=== PATIENT | female | born 1990 | race Caucasian/White ===

== ENCOUNTER → 2018-03-28 13:18 | Outpatient (CLI) | payer OTHER, SELFPAY ==
[2018-03-28 15:27] LABS: Chlamydia Trachomatis by PCR Negative (Negative); Neisserai gonorrhoeae by PCR Negative (Negative); Probe Check PASS; Sample Adequacy Control PASS; Specimen Processing Control PASS
== END ==
PROVIDERS: Referring Provider Obstetrics & Gynecology; Visit Provider Obstetrics & Gynecology
DX: Z12.4 Encounter for screening for malignant neoplasm of cervix (principal); Z11.3 Encounter for screening for infections with a predominantly sexual mode of transmission
CPT/HCPCS: 87491; 87591; 88175; G0145

== ENCOUNTER → 2018-08-07 09:30 | Outpatient (CLI) | payer OTHER, SELFPAY | PROVIDERS: Visit Provider Obstetrics & Gynecology | DX: Z36.85 Encounter for antenatal screening for Streptococcus B (principal) | CPT/HCPCS: 87081 ==

== ENCOUNTER 2018-08-28 18:25 | Inpatient (IN) | payer SELFPAY ==
[2018-08-28] VITALS (11 sets, daily range): BP systolic 106–128; BP diastolic 57–80; PULSE 83–133; RESP 16–18; TEMP 36.6–36.8; O2SAT 95–100; BMI 29.9
[2018-08-28] MEDS: Lactated Ringers 1,000 ML 999 ML IV (18:45)
[2018-08-28 19:00] LABS: Absolute Lymphocyte Count 2.54 X10^3/ul (0.83-4.51); Absolute Neutrophil Count 9.2 X10^3/uL (2.0-7.7); Basophil# 0.04 X10^3/uL; Basophil% 0.3 % (0-1); Eosinophil# 0.25 X10^3/uL; Eosinophils% 1.9 % (0-5); Hematocrit 37.9 % (37-47); Hemoglobin 12.8 g/dl (12.0-15.0); Lymphocyte # 2.54 X10^3/ul (4.0); Lymphocyte % 19.4 % (19-41); Mean Corp Hgb Conc 33.8 g/gl (32-36); Mean Corpuscular Hgb 27.1 pg (27.0-32.0); Mean Corpuscular Volume 80.1 fL (81-99); Mean Platelet Vol. 9.6 fl (6.2-12.0); Monocyte# 1.04 X10^3/uL; Monocyte% 7.9 % (0-10); Neutrophil # 9.22 X10^3/uL (2.7-7.7); Neutrophil % 70.3 % (47-70); Platelet Count 279 K/mm3 (150-450); RBC Distribution Width CV 14.2 % (11.6-14.6); RBC Distribution Width SD 41.3 fl (35.1-43.9); Red Blood Count 4.73 M/mm3 (4.2-5.4); White Blood Count 13.1 K/mm3 (4.4-11.0)
[2018-08-28 19:01] LABS: POSITIVE COUNT NO; POSITIVE DIFFERENTIAL NO; POSITIVE MORPHOLOGY NO
[2018-08-28] MEDS: Sodium Citrate/Citric Acid 30 ML UDC PO (19:18)
--- NOTE | 2018-08-28 19:34 | PCM.OPRPT ---
Delivery Classification: Scheduled Final MELISSA: 08/31/18 Gestational age: 39 Weeks and 4 Days Indications: Uterine Window; Prior Low Transverse Description of Procedure: Surgeon: Ej Godoy MD, FACOG [employer] Leadership: DAVID Klein Anesthesia: Stanley Mckinney MD Anesthesia: Spinal with Duramorph Pre-op Diagnosis: Prior Section; Uterine Window Post-Op Diagnosis: Prior Section; Uterine Window Procedure: Repeat Low Transverse Cervical Caesarean Section Findings: Viable female with Apgars of 8/9 in caput anterior presentation with clear amniotic fluid and normal three-vessel placenta. There was an approximate 8 x 12 cm uterine window present. Multiple adhesions of the omentum to the anterior abdominal wall and adhesions of the uterus to the pelvic sidewalls were present and taken down with suture ligation and cautery dissection. Indication: This is a 27-year-old who presents for her second at 39+ weeks gestation. She planned on having a vaginal after but on ultrasound today in the office there was noted be a large uterine window present. Given this she desired we immediately proceed with the above surgery. care has otherwise been uneventful. The patient has been counseled regarding the risk and indications of this procedure including the possibility of bleeding infection and injury to surrounding structures such as bowel bladder. All questions were answered. Procedure: Patient was taken to the operating room where after spinal anesthesia was placed, the patient was prepped and draped in usual sterile fashion and a Arthur catheter was placed. The abdomen was entered through the patient's prior Pfannenstiel incision, old skin scar was removed, and peritoneum was entered bluntly. After taking down some filmy omental adhesions with cautery and developing a bladder flap on the lower uterine segment a low transverse incision was made on the uterus at the superior edge of the window and head was easily delivered onto the operative field the nose mouth and oropharynx were bulb suctioned. Subsequently a viable female infant was born with Apgars of 8/9. The infant was noted to cry move all extremities vigorously on the operative field. The umbilical cord was doubly clamped and ligated and infant handed to the nursery personnel who were present for the delivery. Placenta was delivered and noted to be 3 vessels and normal. Uterus was exteriorized and remaining placental tissue was removed. The uterus was then closed in 2 layers first with running locked 0 Vicryl suture followed by a second imbricating layer with 0 Vicryl suture. 0 Vicryl suture was then used in a horizontal mattress interrupted fashion to affect final hemostasis of the uterine incision line taking care to avoid the bladder. At the end of this portion of the procedure the urine was clear. Omental adhesions were divided with 0 Vicryl suture and normal fallopian tubes and ovaries were visualized and the uterus was returned to the pelvis. Hemostasis was noted and rectus abdominis muscles were reapproximated in the midline with interrupted Number 0 Vicryl suture in a horizontal mattress fashion. Fascia was closed with running Number 1 PDS Strata fix suture. Subcutaneous tissue was irrigated with copious amounts of saline solution and then closed with running 3-0 Vicryl suture in 2 layers. Skin was closed with 4-0 monocryl suture in a running subcuticular fashion. Steri strips, telfa, tape, and a pressure dressing were placed across the incision. The patient tolerated the procedure well and was taken to the recovery room in satisfactory condition. Sponge, needle, and instrument counts were all reportedly correct. EBL was 500 cc cc. Ancef 2 gms IV was given prior to the procedure. Spicemen to Pathology: None Complications: None Amniotic Membrane Rupture Type: Artificial Amniotic Fluid Description: Clear Placenta Disposition: [facility] Cord Entanglement: None Cord Vessel Description: 3 Vessels Esitmated Blood Loss (ml): 500 cc Gender: Female (1 minute): 8 (5 minute): 9 Pre-op Antibiotic Given: Ancef 2 grams IV x1 Pt instructed on risks of surgery: Bleeding, Infection, Injury to surrounding structure(s) including bowel and bladder Complications: None - Admit VTE Documentation VTE Present on Admission: Yes VTE Mechan Device Prophylaxis: SCD's
--- NOTE | 2018-08-28 19:38 | DCINST_ITS ---
Discharge Diet: No Restrictions Discharge Activity: May not drive while taking narcotic pain medications., May Shower, May Take a Tub Bath May resume sexual activity in: 4-6 weeks Lifting Restrictions: 20 pounds Additional Activity Instructions:: Nothing in the vagina for 4-6 weeks. You may return to work/school in 6 weeks. Call your doctor if your incision/area has: Continuous Slow Oozing, Sudden Increased Bleeding, Increased Pain/ Swelling, Increased Redness, Foul Smelling Discharge Call your doctor if you observe: Fever of 101 or Higher, Inability to urinate, Inability to have a bowel movement, Using more than one pad per hour Additional Instructions: If you experience any of the following, contact your healthcare provider. * Bleeding that soaks a pad every hour for 2 hours * Unrelieved incision or abdominal pain * Swelling, redness, discharge or bleeding from your incision or episiotomy site * Your incision begins to separate * Problems urinating (including inability to urinate or burning while urinating). * Visual changes * Severe headache * Flu-like symptoms * Pain or redness in one of both of your breasts * Pain, warmth, tenderness or swelling in your legs, especially the calf area * Frequent nausea and vomiting * Symptoms of depression or anxiety If you experience any of the following, call 911 or go to the nearest Emergency Room. * Chest pain * Problems breathing * Seizure activity * Partial or complete paralysis of a body part, slurred speech, weakness or drooping of the face, or a sudden inability to walk or hold your balance Allergies/Adverse Reactions: Allergies No Known Allergies Allergy (Verified 08/28/18 18:36) Medications to take at Discharge Docusate Sodium [Colace] 100 mg PO BID PRN PRN #60 cap 08/28/18 Oxycodone [Oxyir] 5 mg PO Q6H PRN PRN 7 Days #20 tab 08/28/18 Vits [Prenatabs FA] 1 tab PO DAILY 08/28/18 The following prescriptions were given: Docusate Sodium [Colace] 100 mg PO BID PRN PRN #60 cap PRN Reason: Constipation Prescription Printed Oxycodone [Oxyir] 5 mg PO Q6H PRN PRN 7 Days #20 tab PRN Reason: Severe Pain () Prescription Printed Follow-Up: Call to make an appointment with your doctor for an incision check in 1-2 weeks. You will also need a 6 week post- follow up appointment. Test results from this visit will be discussed in further detail at your follow- up appointment, if applicable. Please Follow Up With: Ej Godoy MD - [phone] When: Call to make an appointment for an incision check in 2 weeks.
[2018-08-28] MEDS: Cefazolin 2 GM in 0.9% Normal Saline 100 ML IV (19:45)
[2018-08-28] MEDS: Oxytocin 30 units/NS 500 ml 30 UNITS/500 ML IV.SOLN 167 UNITS IV (20:00)
--- NOTE | 2018-08-28 21:21 | EKG12_ITS ---
Test Reason : HEART MURMOR Blood Pressure : / mmHG Vent. Rate : 096 BPM Atrial Rate : 096 BPM P-R Int : 162 ms QRS Dur : 094 ms QT Int : 348 ms P-R-T Axes : 118 086 139 degrees QTc Int : 439 ms Normal sinus rhythm with sinus arrhythmia Incomplete right bundle branch block Nonspecific ST and T wave abnormality Abnormal ECG No previous ECGs available Confirmed by NEMESIO DELVALLE ([id number]), subeditor ERNIE MYERS ([id number]) on 08/30/2018 2:05:42 PM Referred By: Ej Godoy Confirmed By:NEMESIO DELVALLE
--- NOTE | 2018-08-28 21:47 | PCM.PROGNOTE ---
Subjective: Day of Delivery Called to see patient due to significant murmur on exam by RNMaris Waters with known family history of Hypertrophic Cardiomyopathy. She is a carrier, but unaffected as of last evaluation . She states had cardiac ECHO by a now defunct [facility] medical organization at 20 yrs of age. She denies any functional limitations. She was delivered tonight by repeat C/S rather than ... due to a large uterine defect noted on ultrasound today. She is nursing the baby, in NAD Her prior C/S was for distress -- and she had no complications with that surgery. Objective: Sitting up in bed, holding baby, conversant - Physical Exam General: Alert, Oriented x3, Cooperative, No apparent distress HEENT: Atraumatic, EOMI, Normocephalic Oral: Moist Mucosa Neck: Supple, - - no bruits noted no referred murmur Lungs: Clear to auscultation, Normal air movement Cardiovascular: Regular rate, Regular Rhythm, No murmurs Abdomen: Soft Skin: Incision Neurological: Cranial nerves II-XII grossly intact Psych/Mental Status: Normal Affect, Appropriate Vital Signs Temp Pulse Resp BP Pulse Ox 97.9 F 85 16 121/72 H 95 08/28/18 21:25 08/28/18 21:25 08/28/18 21:25 08/28/18 21:25 08/28/18 21:25 Oxygen Delivery Method Room Air Weight: 81.8 kg Body Mass Index (BMI) 29.9 Intake and Output for Last 24 Hours 08/26/18 08/27/18 08/28/18 23:59 23:59 23:59 Intake Total 1500 / 1500 Output Total 700 / 700 Balance 800 / 800 Laboratory Tests Past 24 Hrs 08/28/18 08/28/18 18:45 18:45 WBC 13.1 H RBC 4.73 Hgb 12.8 Hct 37.9 MCV 80.1 L MCH 27.1 MCHC 33.8 RDW 14.2 RDW Differential 41.3 Plt Count 279 MPV 9.6 Immature Gran % (Auto) 0.200 Neut % (Auto) 70.3 H Lymph % (Auto) 19.4 [place] % (Auto) 7.9 Eos % (Auto) 1.9 Baso % (Auto) 0.3 Absolute Neuts (auto) 9.2 H Absolute Lymphs (auto) 2.54 Total Counted Not Reportable Blood Type O POSITIVE Antibody Screen NEGATIVE Medical Necessity - Tobacco Use Smoking Status: Never smoker Assessment/Plan EKG: NSR with sinus arrhythmia. Nonspecific ST, T changes. Partial R BBB (unconfirmed) A/P: S/P repeat C Section . Normal cardiac exam at present . 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 Suspect prior RN exam with heart sounds due to accommodation, and hemodynamic fluid shifts with delivery. Nothing currently clinically concerning. Will arrange for cardiology consult and possible ECHO during this hospital stay, given pt's hx and no recent workup.
--- NOTE | 2018-08-28 21:47 | NURSING ---
2134 Resp therapy into room for EKG 2139 at bedside, assessing pt, and reviewed EKG. plan at this time is to have a cardiac echo tomorrow
[2018-08-28] MEDS: Lactated Ringers 1,000 ML 100 ML IV (22:00)
[2018-08-29] VITALS (19 sets, daily range): BP systolic 94–110; BP diastolic 52–64; PULSE 87–119; RESP 14–20; TEMP 36.2–37.4; O2SAT 98–100
[2018-08-29] MEDS: 0.9% Saline Lock 10 ML Syringe IV ×3 (01:39→20:30)
[2018-08-29] MEDS: Ketorolac 30 MG/ML Syringe IV (01:39)
[2018-08-29] MEDS: Cefazolin 1 GM/50 ML BAG IV ×2 (03:27→12:18)
[2018-08-29 06:01] LABS: Hematocrit 30.8 % (37-47); Hemoglobin 10.2 g/dl (12.0-15.0); Mean Corp Hgb Conc 33.1 g/gl (32-36); Mean Corpuscular Hgb 26.6 pg (27.0-32.0); Mean Corpuscular Volume 80.4 fL (81-99); Mean Platelet Vol. 9.4 fl (6.2-12.0); Platelet Count 245 K/mm3 (150-450); RBC Distribution Width CV 14.4 % (11.6-14.6); RBC Distribution Width SD 41.2 fl (35.1-43.9); Red Blood Count 3.83 M/mm3 (4.2-5.4); White Blood Count 13.2 K/mm3 (4.4-11.0)
[2018-08-29 06:08] LABS: Scan Indicated on CBC? Y/N NO
[2018-08-29] MEDS: Lactated Ringers 1,000 ML 100 ML IV (06:32)
--- NOTE | 2018-08-29 07:36 | PCM.PN.BLA ---
Progress Note ADDENDUM: Discussed pt with Dr Bell. He will order ECHO, and will consult prn depending on ECHO result.
[2018-08-29] MEDS: Ketorolac 15 MG/ML Vial 30 MG IV ×3 (07:51→20:30)
--- NOTE | 2018-08-29 08:23 | PCM.PN.OB ---
Subjective: Patient without complaints. Tolerating diet well. Minimal vaginal bleeding. Pain well controlled. Cardiac echo plan per Dr. Bell recommendation due to family history of hypertrophic cardiomyopathy and significant murmur noted by nursing. - Physical Exam Vital Signs Temp Pulse Resp BP Pulse Ox 99.4 F H 103 H 16 103/54 L 100 08/29/18 05:34 08/29/18 07:00 08/29/18 07:00 08/29/18 05:34 08/29/18 07:00 Oxygen Delivery Method Room Air Weight: 180 lb 5.41 oz Body Mass Index (BMI) 29.9 Intake and Output for Last 24 Hours 08/27/18 08/28/18 08/29/18 23:59 23:59 23:59 Intake Total 2225 / 2225 Output Total 800 / 800 800 / 800 Balance 1425 / 1425 -800 / -800 Laboratory Tests Past 24 Hrs 08/28/18 08/28/18 08/29/18 18:45 18:45 05:35 WBC 13.1 H 13.2 H RBC 4.73 3.83 L Hgb 12.8 10.2 L Hct 37.9 30.8 L MCV 80.1 L 80.4 L MCH 27.1 26.6 L MCHC 33.8 33.1 RDW 14.2 14.4 RDW Differential 41.3 41.2 Plt Count 279 245 MPV 9.6 9.4 Immature Gran % (Auto) 0.200 Neut % (Auto) 70.3 H Lymph % (Auto) 19.4 [place] % (Auto) 7.9 Eos % (Auto) 1.9 Baso % (Auto) 0.3 Absolute Neuts (auto) 9.2 H Absolute Lymphs (auto) 2.54 Total Counted Not Reportable Blood Type O POSITIVE Antibody Screen NEGATIVE Wound is clean, dry, intact. Good urine output. Hemoglobin okay. Medical Necessity - Tobacco Use Smoking Status: Never smoker Assessment/Plan Doing well postoperative day #1 status post repeat low transverse cervical section. Continuing present care.
--- NOTE | 2018-08-29 08:51 | ECHOD_ITS ---
Reason For Study: MURMUR Procedure This was a 2D Doppler, Color Flow transthoracic echocardiogram. The study was technically difficult. Exam performed portable in patient room. Left Ventricle Normal LV size. Left ventricular systolic function is normal. Normal diastology for age. The estimated ejection fraction is 60 %. No regional wall motion abnormalities noted. Right Ventricle Normal RV size. Normal systolic function. Atria Normal left atrium. Normal right atrium. Mitral Valve Normal mitral valve. Tricuspid Valve Normal tricuspid valve. Aortic Valve Normal aortic valve. Trisinus/trileaflet aortic valve. Pulmonic Valve Normal pulmonic valve. Great Vessels Normal aortic root. The pulmonary artery is normal size. Normal inferior vena cava. Pericardium/Pleural No pericardial effusion. MMode/2D Measurements & Calculations LVIDd: 4.0 cm IVSd: 0.89 cm Ao root diam: 2.7 cm LVIDs: 2.4 cm LVPWd: 0.97 cm RVDd: 2.9 cm FS: 38.7 % LAV(MOD-bp): 47.5 ml LVAd ap4: 28.1 cm2 SV(MOD-sp4): 54.7 ml LAV(MOD-bp) Indexed: 25.1 ml/m2 EDV(MOD-sp4): 83.1 ml LAV(MOD-sp2): 34.3 ml EDV(sp4-el): 86.6 ml LAV(MOD-sp4): 55.0 ml LVAs ap4: 14.1 cm2 ESV(MOD-sp4): 28.3 ml ESV(sp4-el): 28.7 ml EF(MOD-sp4): 65.9 % EF(sp4-el): 66.9 % SV(sp4-el): 57.9 ml LA A4 area: 18.8 cm2 LA dimension(2D): 2.6 cm RA A4 area: 11.5 cm2 Time Measurements MV dec time: 0.23 sec Doppler Measurements & Calculations MV E max mane: 109.5 cm/sec Lat Peak E' Mane: 17.8 cm/sec Med Peak E' Mane: 11.9 cm/sec MV A max mane: 81.2 cm/sec E/E' lat: 6.1 E/E' med: 9.2 MV E/A: 1.3 Ao V2 max: 158.7 cm/sec LV V1 max: 160.0 cm/sec Ao max P.1 mmHg LV V1 max P.2 mmHg Interpretation Summary Normal LV size. Left ventricular systolic function is normal. Normal diastology for age. No regional wall motion abnormalities noted. The estimated ejection fraction is 60 %. Structurally normal valves. Ordering Physician: Deepak Bell Referring Physician: Ej Godoy Performed By: Eryn Laboy RDCS, RVT
[2018-08-30 01:27] VITALS: BP 113/64; PULSE 79; RESP 18; TEMP 36.9; O2SAT 96
[2018-08-30] MEDS: Ketorolac 15 MG/ML Vial 30 MG IV ×2 (03:01→08:04)
[2018-08-30] MEDS: 0.9% Saline Lock 10 ML Syringe IV (03:02)
--- NOTE | 2018-08-30 06:02 | PCM.PN.OB ---
Subjective: Patient without complaints. Tolerating diet well. Breast-feeding going well. Positive flatus. Wants to go home later today if possible. - Physical Exam Vital Signs Temp Pulse Resp BP Pulse Ox 98.4 F 79 18 113/64 96 08/30/18 01:27 08/30/18 01:27 08/30/18 01:27 08/30/18 01:27 08/30/18 01:27 Oxygen Delivery Method Room Air Weight: 180 lb 5.41 oz Body Mass Index (BMI) 29.9 Intake and Output for Last 24 Hours 08/28/18 08/29/18 08/30/18 23:59 23:59 23:59 Intake Total 2225 / 2225 3347 / 3347 Output Total 800 / 800 5850 / 5850 650 / 650 Balance 1425 / 1425 -2503 / -2503 -650 / -650 Laboratory Tests Past 24 Hrs 08/29/18 05:35 WBC 13.2 H RBC 3.83 L Hgb 10.2 L Hct 30.8 L MCV 80.4 L MCH 26.6 L MCHC 33.1 RDW 14.4 RDW Differential 41.2 Plt Count 245 MPV 9.4 Wound is clean, dry, intact. Good urine output. Medical Necessity - Tobacco Use Smoking Status: Never smoker Assessment/Plan Doing well postoperative day #2 status post repeat section. Will discharge to home with routine instructions.
[2018-08-30 08:17] VITALS: BP 100/67; PULSE 90; RESP 16; TEMP 36.6; O2SAT 95
--- NOTE | 2018-09-03 18:56 | NURSING ---
No answer on follow up phone call, message left.
== END 2018-08-30 11:20 | disposition home or self-care (01) | DRG 788 ==
PROVIDERS: Admitting Provider Obstetrics & Gynecology; Referring Provider Obstetrics & Gynecology; Visit Provider Obstetrics & Gynecology
DX: O34.211 Maternal care for low transverse scar from previous cesarean delivery (principal); O34.593 Maternal care for other abnormalities of gravid uterus, third trimester; Q51.818 Other congenital malformations of uterus; R01.1 Cardiac murmur, unspecified; Z3A.39 39 weeks gestation of pregnancy; Z37.0 Single live birth
CPT/HCPCS: 59025; 85025; 85027; 86850; 86900; 93005; 93306; 99218; J7120; A4216; G0378; J2405

== ENCOUNTER 2021-05-26 13:11 | Outpatient (CLI) | payer OTHER, SELFPAY ==
[2021-06-01 12:00] LABS: Chlamydia By Nucleic Acid AMP Negative (Negative)
[2021-06-01 16:48] LABS: Gonococcus By Nucleic Acid AMP Negative (Negative)
[2021-06-03 20:07] LABS: HPV Reflexed? NOT INDICATED
== END 2021-05-26 23:59 | disposition home or self-care (01) ==
LOC: LABSPEC 13:12
PROVIDERS: Visit Provider Obstetrics & Gynecology
DX: Z34.81 Encounter for supervision of other normal pregnancy, first trimester (principal)
CPT/HCPCS: 87491; 87591; 88175; G0145